=== PATIENT | male | born 1960 | race Caucasian/White ===

== ENCOUNTER 2017-10-15 12:19 | Emergency (ER) | payer OTHER ==
[2017-10-15 13:47] LABS: ANION GAP 12 (8-16); BLOOD UREA NITROGEN 22 mg/dl (7-20); CALCIUM 9.1 mg/dl (8.4-10.2); CARBON DIOXIDE 25 mmol/L (21-31); CHLORIDE 105 mmol/L (97-110); CREATININE 0.96 mg/dl (0.61-1.24); GLUCOSE 102 mg/dl (70-220); POTASSIUM 4.3 mmol/L (3.5-5.1); SODIUM 138 mmol/L (135-144)
[2017-10-15] MEDS: LORAZEPAM 2 MG INJ IV (13:58)
[2017-10-15] MEDS: SOD CHLORIDE 0.9% 100 ML (14:38)
[2017-10-15] MEDS: IOHEXOL 300MG/ML 150 ML BTL (14:38)
== END 2017-10-15 16:49 | disposition home or self-care (01) ==
LOC: E/R 12:19
DX: K43.9 Ventral hernia without obstruction or gangrene (principal)
CPT/HCPCS: 74177; 80048; 99284-25

== ENCOUNTER 2017-11-08 12:53 | Inpatient (IN) | payer OTHER ==
[~2017-11-08 12:53] MED LIST: ALBUTEROL 0.083% (NEB) 2.5 MG/3 ML AMP HHN; CEFAZOLIN 2 GM/50 ML (PMX) 50 ML IVPB; DIPHENHYDRAMINE 50 MG INJ IV; FENTAnyl 50 MCG/ML VIAL IV; HYDROmorphONE 1 MG/5 ML IV SYRINGE IV; LIDOCAINE 2% (SDV) 5 ML INJ; MEPERIDINE 25 MG INJ IV; METOCLOPRAMIDE 10 MG INJ IV; ONDANSETRON 4 MG INJ IV; SOD CHLORIDE 0.9% 1,000 ML IV; SUCCINYLCHOLINE CHLORIDE 100 MG/5 ML SYG IV
[2017-11-08] MEDS ORDERED: POLYMYXIN/BACITRACIN 1L IRRIG (14:24)
[2017-11-08] MEDS ORDERED: ROPIVACAINE 0.5 % 30 ML VIAL (14:31)
[2017-11-08] MEDS ORDERED: FENTAnyl 50 MCG/ML VIAL (14:35)
[2017-11-08] MEDS ORDERED: PROPOFOL 20 ML (15:54)
[2017-11-08] MEDS ORDERED: ROCURONIUM 50 MG INJ (15:54)
[2017-11-08] MEDS ORDERED: SUGAMMADEX SODIUM 200 MG/2 ML VIAL IV (15:54)
[2017-11-08] MEDS ORDERED: CEFAZOLIN 1 GM INJ (15:54)
[2017-11-08] MEDS ORDERED: SUCCINYLCHOLINE CHLORIDE 100 MG/5 ML SYG IV (15:54)
[2017-11-08] MEDS ORDERED: NALOXONE (0.4 MG/ML) INJ IV (16:00)
[2017-11-08 16:31] LABS: ADD MAN DIFF? NO
[2017-11-08] MEDS: KETOROLAC 30 MG INJ IV (16:31)
[2017-11-08 16:32] LABS: WHITE BLOOD COUNT 10.2 10^3/ul (4.8-10.8)
[2017-11-08 16:32] LABS: BASOPHILS % 0.2 % (0.0-2.0); EOSINOPHILS # 0.1 10^3/ul (0.0-0.5); EOSINOPHILS % 0.8 % (0.0-7.0); LYMPHOCYTES # 2.1 10^3/ul (0.8-2.9); LYMPHOCYTES % 20.8 % (15.0-51.0); MEAN CORPUSCULAR HEMOGLOBIN 30.7 pg (29.0-33.0); MEAN CORPUSCULAR HGB CONC 34.1 g/dl (32.0-37.0); MEAN CORPUSCULAR VOLUME 89.9 fl (82.0-101.0); MEAN PLATELET VOLUME 11.4 fl (7.4-10.4); MONOCYTE # 0.5 10^3/ul (0.3-0.9); MONOCYTES % 5.3 % (0.0-11.0); NEUTROPHIL # 7.4 10^3/ul (1.6-7.5); NEUTROPHILS % 72.6 % (39.0-77.0); PLATELET COUNT 178 10^3/UL (140-415); RED BLOOD COUNT 4.56 10^6/ul (4.70-6.10)
[2017-11-08] MEDS ORDERED: HYDROmorphONE 1 MG/5 ML IV SYRINGE IV ×2 (16:48→17:00)
[2017-11-08] MEDS ORDERED: ONDANSETRON 4 MG INJ (16:48)
[2017-11-08 16:50] LABS: ALANINE AMINOTRANSFERASE 34 IU/L (13-69); ALBUMIN 3.5 g/dl (3.3-4.9); ALBUMIN/GLOBULIN RATIO 1.29; ALKALINE PHOSPHATASE 34 IU/L (42-121); ANION GAP 15 (8-16); ASPARTATE AMINO TRANSFERASE 26 IU/L (15-46); BILIRUBIN,INDIRECT 0.5 mg/dl (0-1.1); BILIRUBIN,TOTAL 0.5 mg/dl (0.2-1.3); BLOOD UREA NITROGEN 21 mg/dl (7-20); CALCIUM 8.2 mg/dl (8.4-10.2); CARBON DIOXIDE 24 mmol/L (21-31); CHLORIDE 108 mmol/L (97-110); CREATININE 0.85 mg/dl (0.61-1.24); GLUCOSE 113 mg/dl (70-220); POTASSIUM 4.2 mmol/L (3.5-5.1); SODIUM 143 mmol/L (135-144); TOTAL PROTEIN 6.2 g/dl (6.1-8.1)
[2017-11-08] MEDS: HYDROmorphONE 1 MG/5 ML IV SYRINGE IV ×3 (16:59→17:35)
[2017-11-08] MEDS ORDERED: ONDANSETRON 4 MG INJ IV (17:00)
[2017-11-08] MEDS ORDERED: FENTAnyl 50 MCG/ML VIAL IV ×3 (17:00)
[2017-11-08] MEDS ORDERED: hydrALAzine 20 MG INJ IV (17:00)
[2017-11-08] MEDS ORDERED: LABETALOL HCL 20MG INJ IV (17:00)
[2017-11-08] MEDS: CEFAZOLIN 2 GM/50 ML (PMX) 50 ML IVPB (17:04)
[2017-11-08] MEDS: HYDROmorphONE 0.2 MG/ML PCA IV (17:12)
[2017-11-08] MEDS: SOD CHLORIDE 0.9% 1,000 ML IV (18:31)
[2017-11-08] MEDS: PANTOPRAZOLE 40 MG INJ IV (20:06)
[2017-11-09] MEDS: CEFAZOLIN 2 GM/50 ML (PMX) 50 ML IVPB ×2 (02:01→09:02)
[2017-11-09] MEDS: ONDANSETRON 4 MG INJ IV (02:10)
[2017-11-09] MEDS: PANTOPRAZOLE 40 MG INJ IV (05:26)
[2017-11-09] MEDS: SOD CHLORIDE 0.9% 1,000 ML IV ×3 (05:26→16:49)
[2017-11-09 06:50] LABS: ADD MAN DIFF? NO
[2017-11-09 07:05] LABS: BASOPHILS % 0.1 % (0.0-2.0); HEMOGLOBIN 12.8 g/dl (14.0-18.0); LYMPHOCYTES # 1.3 10^3/ul (0.8-2.9); LYMPHOCYTES % 12.7 % (15.0-51.0); MEAN CORPUSCULAR HEMOGLOBIN 30.3 pg (29.0-33.0); MEAN CORPUSCULAR HGB CONC 33.7 g/dl (32.0-37.0); MEAN CORPUSCULAR VOLUME 89.8 fl (82.0-101.0); MEAN PLATELET VOLUME 11.8 fl (7.4-10.4); MONOCYTE # 0.7 10^3/ul (0.3-0.9); MONOCYTES % 6.6 % (0.0-11.0); NEUTROPHIL # 8.4 10^3/ul (1.6-7.5); NEUTROPHILS % 80.3 % (39.0-77.0); PLATELET COUNT 179 10^3/UL (140-415); RED BLOOD COUNT 4.23 10^6/ul (4.70-6.10); RED CELL DISTRIBUTION WIDTH 13.2 % (11.5-14.5)
[2017-11-09 07:05] LABS: WHITE BLOOD COUNT 10.5 10^3/ul (4.8-10.8)
[2017-11-09 07:29] LABS: ALANINE AMINOTRANSFERASE 26 IU/L (13-69); ALBUMIN 3.3 g/dl (3.3-4.9); ALBUMIN/GLOBULIN RATIO 1.26; ALKALINE PHOSPHATASE 31 IU/L (42-121); ANION GAP 14 (8-16); ASPARTATE AMINO TRANSFERASE 38 IU/L (15-46); BILIRUBIN,INDIRECT 0.7 mg/dl (0-1.1); BILIRUBIN,TOTAL 0.7 mg/dl (0.2-1.3); BLOOD UREA NITROGEN 21 mg/dl (7-20); CALCIUM 8.3 mg/dl (8.4-10.2); CARBON DIOXIDE 25 mmol/L (21-31); CHLORIDE 108 mmol/L (97-110); CREATININE 0.86 mg/dl (0.61-1.24); GLUCOSE 117 mg/dl (70-220); POTASSIUM 4.3 mmol/L (3.5-5.1); SODIUM 143 mmol/L (135-144); TOTAL PROTEIN 5.9 g/dl (6.1-8.1)
[2017-11-09] MEDS: HYDROmorphONE 0.2 MG/ML PCA IV (11:52)
[2017-11-10] MEDS: SOD CHLORIDE 0.9% 1,000 ML IV ×2 (03:05→13:28)
[2017-11-10] MEDS: PANTOPRAZOLE 40 MG INJ IV (05:35)
[2017-11-10 06:22] LABS: ADD MAN DIFF? NO
[2017-11-10 06:26] LABS: BASOPHILS % 0.3 % (0.0-2.0); EOSINOPHILS # 0.1 10^3/ul (0.0-0.5); EOSINOPHILS % 1.3 % (0.0-7.0); HEMATOCRIT 37.4 % (42.0-52.0); HEMOGLOBIN 12.6 g/dl (14.0-18.0); LYMPHOCYTES # 1.8 10^3/ul (0.8-2.9); LYMPHOCYTES % 17.3 % (15.0-51.0); MEAN CORPUSCULAR HEMOGLOBIN 30.8 pg (29.0-33.0); MEAN CORPUSCULAR HGB CONC 33.7 g/dl (32.0-37.0); MEAN CORPUSCULAR VOLUME 91.4 fl (82.0-101.0); MEAN PLATELET VOLUME 12.3 fl (7.4-10.4); MONOCYTE # 1.1 10^3/ul (0.3-0.9); MONOCYTES % 10.2 % (0.0-11.0); NEUTROPHIL # 7.3 10^3/ul (1.6-7.5); NEUTROPHILS % 70.5 % (39.0-77.0); PLATELET COUNT 168 10^3/UL (140-415); RED BLOOD COUNT 4.09 10^6/ul (4.70-6.10); RED CELL DISTRIBUTION WIDTH 13.2 % (11.5-14.5)
[2017-11-10 06:26] LABS: WHITE BLOOD COUNT 10.3 10^3/ul (4.8-10.8)
[2017-11-10 07:15] LABS: ANION GAP 9 (8-16); BLOOD UREA NITROGEN 17 mg/dl (7-20); CALCIUM 8.1 mg/dl (8.4-10.2); CARBON DIOXIDE 30 mmol/L (21-31); CHLORIDE 105 mmol/L (97-110); GLUCOSE 94 mg/dl (70-220); SODIUM 140 mmol/L (135-144)
[2017-11-10] MEDS: KETOROLAC 30 MG INJ IV (14:36)
[2017-11-10] MEDS ORDERED: morphine 2 MG INJ IV (15:00)
[2017-11-10] MEDS ORDERED: ACETAMINOPHEN 1000MG/100ML IV 100 ML IVPB (15:00)
[2017-11-11] MEDS: KETOROLAC 30 MG INJ IV (01:15)
[2017-11-11] MEDS: SOD CHLORIDE 0.9% 1,000 ML IV ×2 (05:48→13:56)
[2017-11-11] MEDS: PANTOPRAZOLE 40 MG INJ IV (05:48)
[2017-11-11 06:34] LABS: ADD MAN DIFF? NO
[2017-11-11 06:37] LABS: WHITE BLOOD COUNT 8.7 10^3/ul (4.8-10.8)
[2017-11-11 06:37] LABS: BASOPHILS % 0.5 % (0.0-2.0); EOSINOPHILS # 0.3 10^3/ul (0.0-0.5); LYMPHOCYTES # 2.3 10^3/ul (0.8-2.9); LYMPHOCYTES % 26.9 % (15.0-51.0); MEAN CORPUSCULAR HEMOGLOBIN 30.5 pg (29.0-33.0); MEAN CORPUSCULAR HGB CONC 34.1 g/dl (32.0-37.0); MEAN CORPUSCULAR VOLUME 89.3 fl (82.0-101.0); MEAN PLATELET VOLUME 12.2 fl (7.4-10.4); MONOCYTE # 0.8 10^3/ul (0.3-0.9); MONOCYTES % 9.6 % (0.0-11.0); NEUTROPHIL # 5.2 10^3/ul (1.6-7.5); NEUTROPHILS % 59.4 % (39.0-77.0); PLATELET COUNT 178 10^3/UL (140-415); RED BLOOD COUNT 4.59 10^6/ul (4.70-6.10)
== END 2017-11-11 19:00 | disposition home or self-care (01) | DRG 354 ==
LOC: REC 12:53 → 2NE 18:00
PROC: 0WUF0JZ Supplement Abdominal Wall with Synthetic Substitute, Open Approach (ICD-10-PCS; principal; 2017-11-08 13:30)
PROC: 0KXL0ZZ Transfer Left Abdomen Muscle, Open Approach (ICD-10-PCS; 2017-11-08 13:30)
PROC: 0KXK0ZZ Transfer Right Abdomen Muscle, Open Approach (ICD-10-PCS; 2017-11-08 13:30)
DX: K43.0 Incisional hernia with obstruction, without gangrene (principal); K56.7 Ileus, unspecified; K21.9 Gastro-esophageal reflux disease without esophagitis; R11.0 Nausea; G89.18 Other acute postprocedural pain
CPT/HCPCS: 74018; 80048; 80053; 85025